=== PATIENT | male | born 1975 | race Caucasian/White ===

== ENCOUNTER 2022-02-07 02:49 | Emergency (ER) | payer MEDICAID ==
[~2022-02-07] VITALS: Ht 165.1 cm; Wt 90.0 kg
[2022-02-07 04:09] VITALS: BP 146/92
[2022-02-07] MEDS ORDERED: PENI500T2 PO (04:53)
[2022-02-07] MEDS ORDERED: ACET-2080 PO (04:53)
[2022-02-07] MEDS ORDERED: IBUP-1554 PO (04:53)
[2022-02-07] MEDS ORDERED: CEPHALEXIN MONOHYDRATE 500 MG CAPSULE PO ONE (05:00)
[2022-02-07] MEDS ORDERED: KETOROLAC TROMETHAMINE 60 MG/2 ML VIAL IM ONE (05:00)
== END 2022-02-07 05:06 | disposition home or self-care (01) ==
LOC: EMS 02:53
DX: K08.89 Other specified disorders of teeth and supporting structures (principal)
CPT/HCPCS: 99283; 96372; J1885

== ENCOUNTER 2024-01-02 05:11 | Emergency (ER) | payer MEDICAID ==
[~2024-01-02] VITALS: Ht 165.1 cm; Wt 88.6 kg
[~2024-01-02 05:11] MED LIST: ACET-2080 PO; IBUP-1554 PO; PENI500T2 PO
[2024-01-02 05:17] VITALS: BP 122/87; PULSE 95; RESP 16; TEMP 98.9; O2SAT 100
== END 2024-01-02 06:57 | disposition home or self-care (01) ==
LOC: EMS 05:12
DX: M79.671 Pain in right foot (principal); F17.210 Nicotine dependence, cigarettes, uncomplicated
CPT/HCPCS: 99283